=== PATIENT | male | born 1975 | race Caucasian/White ===

== ENCOUNTER 2022-06-25 23:13 | Emergency (ER) | payer MEDICAID ==
[~2022-06-25] VITALS: Ht 177.8 cm; Wt 84.0 kg
[2022-06-25 23:45] VITALS: BP 140/79
[2022-06-26] MEDS ORDERED: VANCOMYCIN 1G PREMIX 200 ML IV NR (02:00)
== END 2022-06-26 02:33 | disposition left against medical advice (07) ==
LOC: ER 23:13
DX: Z53.21 Procedure and treatment not carried out due to patient leaving prior to being seen by health care provider (principal)

== ENCOUNTER 2022-06-27 23:11 | Emergency (ER) | payer MEDICAID ==
[~2022-06-27] VITALS: Ht 177.8 cm; Wt 84.7 kg
[2022-06-27 23:40] VITALS: BP 113/74
[2022-06-28] MEDS ORDERED: SULF1TAB48 PO (01:40)
[2022-06-28] MEDS ORDERED: IBUP-2029 PO (01:40)
[2022-06-28] MEDS ORDERED: CEPH500C2 PO (01:40)
== END 2022-06-28 04:00 | disposition home or self-care (01) ==
LOC: ER 23:11
DX: L03.115 Cellulitis of right lower limb (principal)
CPT/HCPCS: 99283

== ENCOUNTER 2022-07-01 13:12 | Emergency (ER) | payer MEDICAID ==
[~2022-07-01] VITALS: Ht 182.9 cm; Wt 86.0 kg
[~2022-07-01 13:12] MED LIST: CEPH500C2 PO; IBUP-2029 PO; SULF1TAB48 PO
[2022-07-01 13:57] LABS: CHLORIDE 104 mEq/L (98-107)
[2022-07-01 14:02] LABS: BASOPHILS % 0.5 % (0.0-2.0); EOSINOPHILS % 3.7 % (0.0-5.0); HEMATOCRIT. 45.2 % (42.0-52.0); HEMOGLOBIN. 15.7 g/dL (14.0-18.0); LYMPHOCYTES % 22.8 % (20.0-50.0); MEAN CORPUSCULAR HEMOGLOBIN 29.5 pg (28.0-32.0); MEAN CORPUSCULAR VOLUME 84.9 fL (80.0-94.0); MEAN PLATELET VOLUME 8.8 fl (7.4-10.4); MONOCYTES % 7.1 % (2.0-8.0); NEUTROPHILS % 65.9 % (40.0-76.0); PLATELET 275 x1000/uL (130-400); RED BLOOD CELL COUNT 5.33 mill/uL (4.7-6.1); RED CELL DISTRIBUTION WIDTH 13.6 % (11.6-14.6)
[2022-07-01 14:05] LABS: ETHANOL BLOOD < 10 mg/dL
[2022-07-01 14:59] LABS: INR 0.9; PROTHROMBIN TIME 10.2 sec (9.6-11.0)
[2022-07-01 18:03] VITALS: BP 128/64
== END 2022-07-01 18:07 | disposition home or self-care (01) ==
LOC: ER 13:36
DX: T65.91XA Toxic effect of unspecified substance, accidental (unintentional), initial encounter (principal); G93.40 Encephalopathy, unspecified; I49.9 Cardiac arrhythmia, unspecified; Y92.9 Unspecified place or not applicable
CPT/HCPCS: 36415; 80053; 80307; 80320; 80329; 85025; 93005; 99285; G0480

== ENCOUNTER 2023-06-24 20:46 | Emergency (ER) | payer MEDICAID ==
[~2023-06-24] VITALS: Ht 177.8 cm; Wt 82.0 kg
[2023-06-24 21:11] VITALS: TEMP 97.8; O2SAT 98
[2023-06-24 22:05] LABS: HEMATOCRIT 44.3 % (42.0-52.0); HEMOGLOBIN 15.1 g/dL (14.0-18.0); MEAN CORPUSCULAR HEMOGLOBIN 30.2 pg (28.0-32.0); MEAN CORPUSCULAR HGB CONC 34.1 g/dL (31.0-37.0); MEAN CORPUSCULAR VOLUME 88.6 fL (80.0-94.0); PLATELET 267 x1000/uL (130-400); WHITE BLOOD COUNT 10.5 x1000/uL (4.5-11.0)
[2023-06-24 22:16] LABS: CHLORIDE 103 mEq/L (98-107); INDEX HEMOLYSI 2 (1-3); INDEX ICTERIC 1 (1-4); INDEX LIPEMIC 1 (1-3); POTASSIUM 4.3 mEq/L (3.5-5.1); SODIUM 139 mEq/L (136-145)
[2023-06-24 22:24] LABS: ALANINE AMINOTRANSFERASE 51 IU/L (13-61); ALBUMIN 3.8 g/dL (3.4-5.0); ASPARTATE AMINOTRANSFERASE 29 IU/L (15-37); BILIRUBIN TOTAL 0.3 mg/dL (0.1-1.0); CALCIUM 9.1 mg/dL (8.5-10.1); CARBON DIOXIDE 30 mEq/L (21-32); GLUCOSE 104 mg/dL (70-105); UREA NITROGEN BLOOD 19 mg/dL (7-21)
[2023-06-25 02:00] LABS: TROPONIN I HIGH SENSITIVITY < 4 ng/L (<78)
[2023-06-25 03:50] VITALS: BP 123/78; PULSE 84; RESP 14
[2023-06-25] MEDS ORDERED: GABA-529 MT (04:29)
== END 2023-06-25 05:00 | disposition home or self-care (01) ==
LOC: ER 20:46
DX: G62.9 Polyneuropathy, unspecified (principal); I49.9 Cardiac arrhythmia, unspecified; Z00.00 Encounter for general adult medical examination without abnormal findings
CPT/HCPCS: 80053; 85027; 36415 ×2; 93005; 99285; 84484; 70450; Z7610 ×3

== ENCOUNTER 2023-11-20 21:13 | Emergency (ER) | payer MEDICAID ==
[~2023-11-20] VITALS: Ht 177.8 cm; Wt 90.0 kg
[~2023-11-20 21:13] MED LIST changes: +GABA-529 MT
[2023-11-20 21:30] VITALS: BP 124/60; PULSE 70; RESP 18; TEMP 98.4; O2SAT 99
== END 2023-11-20 23:00 | disposition home or self-care (01) ==
LOC: ER 21:13
DX: R55 Syncope and collapse (principal); G47.419 Narcolepsy without cataplexy; Z00.00 Encounter for general adult medical examination without abnormal findings
CPT/HCPCS: 99283